=== PATIENT | male | born 1945 | race Caucasian/White ===

== ENCOUNTER 2019-12-15 09:53 | Outpatient (REF) | payer MEDICARE, SELFPAY ==
--- NOTE | 2019-12-15 10:05 | CT_ITS ---
EXAMINATION: CT ANGIOGRAM CHEST CLINICAL INFORMATION: Hypertension, thoracic aortic ectasia. COMPARISON: None TECHNIQUE: Multiple axial images were obtained through the chest after the administration of 50 mL of Ultravist 370 intravenous contrast. Extensive vascular post-processing including two-dimensional and three-dimensional reformatted images were created and reviewed on an independent workstation. This CT examination was performed using dose optimization techniques as appropriate, variously including the following: *Automated exposure control *Adjustment of mA and/or kV according to patient size (this includes techniques or standardized protocols for targeted exams where dose is matched to indication/reason for exam; i.e. extremities or head) *Use of iterative reconstruction technique DLP: 160 mGy-cm FINDINGS: The ascending thoracic aorta measures 4.1 cm in AP and transverse dimension just above the aortic valve on axial image 29/5. The arch and descending thoracic aorta are normal caliber. The central trachea and bronchi are widely patent. The heart size is normal. No abnormal size mediastinal or hilar lymph nodes seen. There is no pericardial effusion. The lungs are well expanded with ground-glass patchy opacity seen in both upper lobes, nonspecific. There is no pulmonary nodule, mass, consolidation. There is ill-defined ground-glass density seen in both upper lobes and right lower lobe. There is no pleural effusion, thickening or calcification. The axilla and the chest wall appears unremarkable. Imaging through the upper abdomen reveals visualized liver, spleen, pancreas and bilateral adrenal glands to be unremarkable. No lytic or sclerotic process seen. There is mild ventral spondylosis mid and lower dorsal spine. CT/CT angio chest IMPRESSION: Borderline dilated ascending aorta measuring 4.1 cm just above the aortic valve. The arch and descending thoracic aorta are normal caliber. Scattered Ground-glass attenuation seen throughout the lungs likely early changes of atelectasis or small airway disease.
[2019-12-16] MEDS: iohexoL 350 MG/ML 100 ML INFUS..BTL IV (09:54)
== END 2019-12-15 09:54 | disposition home or self-care (01) ==
LOC: HO.CT 09:53
PROVIDERS: PCP Internal Medicine; Visit Provider Internal Medicine
DX: I10 Essential (primary) hypertension (principal); I77.810 Thoracic aortic ectasia; E11.40 Type 2 diabetes mellitus with diabetic neuropathy, unspecified
CPT/HCPCS: 71275; Q9967

== ENCOUNTER 2020-09-02 14:34 | Outpatient (REF) | payer MEDICARE, SELFPAY ==
--- NOTE | ~2020-09-02 | XR_ITS ---
EXAMINATION: XR SKULL CLINICAL INFORMATION: Headache, unspecified COMPARISON: None TECHNIQUE: 5 views of the skull were obtained. FINDINGS: The calvarium is normal in density. There is no visible fracture or destructive process. The visualized sinuses and mastoids appear well-aerated and clear. There are no visible air-fluid levels or visible significant mucosal thickening. XR/XR skull <4V IMPRESSION: Unremarkable exam. If there is concern for intracranial etiology for the patient's headache, then further evaluation should be obtained with CT or MR.
--- NOTE | ~2020-09-02 | XR_ITS ---
EXAMINATION: XR CERVICAL SPINE CLINICAL INFORMATION: Headache. COMPARISON: None. TECHNIQUE: AP, lateral, open-mouth, and foraminal views of the cervical spine. FINDINGS: Normal vertebral body alignment. The cervical lordosis is maintained. No acute fracture or subluxation. No loss of vertebral body height. Multilevel loss of intervertebral disc height with anterior endplate osteophytes. Normal atlantoaxial alignment. No lytic or blastic osseous lesion. Unremarkable prevertebral soft tissues. XR/XR cervical spine 3V IMPRESSION: Moderate multilevel degenerative disc disease.
== END 2020-09-02 14:35 | disposition home or self-care (01) ==
LOC: HO.XRAY 14:34
PROVIDERS: PCP Internal Medicine; Referring Provider Internal Medicine; Visit Provider Family Medicine
DX: R51.9 Headache, unspecified (principal)
CPT/HCPCS: 70250; 72040

== ENCOUNTER 2021-01-11 07:45 | Outpatient (REF) | payer MEDICARE, SELFPAY ==
--- NOTE | ~2021-01-11 | CT_ITS ---
EXAMINATION: CT ANGIOGRAM BRAIN, HEAD CLINICAL INFORMATION: Undergoing follow up study for possible vascular malformation suspected on previous MRI. COMPARISON: 10/12/2020 MRI brain. TECHNIQUE: Test bolus sequences followed by intravenous administration of 75 mL of Omnipaque 300 intravenous contrast. Helical imaging was performed in the axial plane from the skull base to the vertex. Delayed postcontrast imaging of the head was also performed. The data was processed at the histotechnologist supervisor's workstation for generation of MIP sequences. Three-dimensional volume rendered reformatted images were also generated at an offline 3-D workstation. The degree of stenosis determined by NASCET criteria. This CT examination was performed using dose optimization techniques as appropriate, variously including the following: *Automated exposure control *Adjustment of mA and/or kV according to patient size (this includes techniques or standardized protocols for targeted exams where dose is matched to indication/reason for exam; i.e. extremities or head) *Use of iterative reconstruction technique DLP: 2140 mGy-cm FINDINGS: CT BRAIN: Scattered small patchy zones of hypodensity in the white matter of both cerebral hemispheres are noted consistent with minimal chronic ischemic microangiopathy, as noted on previous MRI. No evidence for acute territorial infarct, extra-axial fluid collection, hemorrhage, space-occupying process or mass effect. The ventricular system and subarachnoid spaces appear within normal limits without hydrocephalus. The bony structures are intact. The visualized airspaces are unopacified. CTA: The CT angiogram has some limitations due to considerable venous contamination due most likely to a somewhat late contrast bolus timing. Unfortunately, this partially obscures evaluation of the cavernous carotid arteries bilaterally. Within these limitations, the intracranial internal carotid arteries are normal in caliber with some mild mural calcifications of the supraclinoid ICAs bilaterally without significant focal stenosis. The A1 segments are patent bilaterally. The anterior communicating artery is visualized. The right A2 segment is normal in caliber and patent. The left A2 segment is not well visualized. Uncertain whether this is related to a severe stenosis or occlusion. The M1 segments are normal in caliber and patent bilaterally. The M2 branches are patent and normal in caliber. The intradural vertebral arteries are patent and normal in caliber. The basilar artery is patent and normal in caliber. The posterior cerebral arteries are patent. Both posterior communicating arteries are visualized and are within normal limits. Note is made of a prominent draining vein in the right cerebellopontine angle cistern which appears to drain into the right sigmoid sinus. A few enhancing vessels are seen just anterior to this within the right paramesencephalic cistern. Due to the bolus timing, it is not possible to determine whether this represents an early draining vein versus an anatomic anomaly. A dural arteriovenous fistula cannot be excluded. CT/CT angio head IMPRESSION: 1. An atypical, prominent vein is seen draining into the right sigmoid sinus in the right cerebellopontine angle cistern with some enhancing vessels in the adjacent right perimesencephalic cistern. Uncertain whether this represents an early draining vein due to the late bolus timing of the examination versus an anatomic anomaly. A dural arteriovenous fistula cannot be excluded. If clinically warranted, catheter angiography may be necessary to further evaluate this. 2. Some limitations related to venous contamination as described above. Within these limitations, no significant intracranial arterial stenosis or large vessel occlusion is identified, with some mild mural calcifications of the supraclinoid ICAs bilaterally. 3. No acute intracranial process. Probable minimal chronic ischemic microangiopathy in the white matter of both cerebral hemispheres.
[2021-01-11] MEDS: iohexoL 300 MG/ML 100 ML INFUS..BTL IV (10:45)
== END 2021-01-11 07:46 | disposition home or self-care (01) ==
LOC: HO.CT 07:45
PROVIDERS: PCP Internal Medicine; Visit Provider Internal Medicine
DX: Q28.3 Other malformations of cerebral vessels (principal)
CPT/HCPCS: 70496; Q9967